=== PATIENT | female | born 1975 | race Caucasian/White ===

== ENCOUNTER 2017-11-15 15:49 | Emergency (ER) | payer SELFPAY ==
[2017-11-15 15:53] VITALS: BMI 25.4
--- NOTE | 2017-11-15 17:00 | C.PDOC ---
History Of Present Illness 41 y/o female presents to the ED complaining of sore throat and fever for the past 3 days. She denies any sick contacts at home or recent travel. She denies any nasal congestion, ear pain, or chills. Time Seen by Provider: 11/15/17 16:14 Chief Complaint (Nursing): ENT Problem History Per: Patient History/Exam Limitations: None Onset/Duration Of Symptoms: Days Current Symptoms Are (Timing): Still Present Past Medical History Reviewed: Historical Data, Nursing Documentation, Vital Signs Vital Signs: Last Vital Signs Temp 99.2 F 11/15/17 17:15 Pulse 90 11/15/17 17:15 Resp 18 11/15/17 17:15 BP 105/69 11/15/17 17:15 Pulse Ox 97 11/15/17 17:43 - Medical History PMH: No Chronic Diseases Surgical History: No Surg Hx Family History: States: No Known Family Hx - Social History Hx Alcohol Use: No Hx Substance Use: No - Immunization History Hx Tetanus Toxoid Vaccination: No Hx Influenza Vaccination: No Hx Pneumococcal Vaccination: No Review Of Systems Except As Marked, All Systems Reviewed And Found Negative. Constitutional: Positive for: Fever. Negative for: Chills ENT: Positive for: Throat Pain. Negative for: Ear Pain, Nose Congestion Physical Exam - Physical Exam Appears: Non-toxic, No Acute Distress Skin: Normal Color, Warm, Dry Head: Atraumatic, Normacephalic Eye(s): bilateral: Normal Inspection, PERRL, EOMI Oral Mucosa: Moist Throat: Erythema, Exudate, No Drooling, Other (pharyngeal and tonsillar erythema and swelling, uvula midline ) Neck: Supple Lymphatic: Adenopathy (Anterior cervical lymphadenopathy) Chest: Symmetrical Cardiovascular: Rhythm Regular Respiratory: Normal Breath Sounds, No Rales, No Rhonchi, No Wheezing Extremity: Normal ROM, No Tenderness Neurological/Psych: Oriented x3, Normal Speech, Normal Cognition Gait: Steady ED Course And Treatment O2 Sat by Pulse Oximetry: 97 (RA) Pulse Ox Interpretation: Normal Progress Note: Orders: amoxicilin 500mg PO. tylenol 650mg PO Disposition - Disposition Referrals: [facility] [Outside] Disposition: HOME/ ROUTINE Disposition Time: 16:58 Condition: GOOD Additional Instructions: Follow up with PMD within 1-2 days. Return to ED if feel worse. Prescriptions: Amoxicillin [Amoxil 500 mg Cap] 500 mg PO Q8 #30 cap Ibuprofen [Motrin Tab] 400 mg PO Q8 #30 tab Instructions: Strep Throat (DC) Forms: [employer] (Belgian) - Clinical Impression Clinical Impression: Pharyngitis - PA / OCCUPATIONAL HEALTH COORDINATOR / Resident Statement MD/DO has reviewed & agrees with the documentation as recorded. - Scribe Statement The provider has reviewed the documentation as recorded by the Scribe Mariaa Chau All medical record entries made by the Hermesibleonel were at my direction and personally dictated by me. I have reviewed the chart and agree that the record accurately reflects my personal performance of the history, physical exam, medical decision making, and the department course for this patient. I have also personally directed, reviewed, and agree with the discharge instructions and disposition.
[2017-11-15 17:17] VITALS: BP 105/69; PULSE 90; RESP 18; TEMP 99.2
[2017-11-15 17:38] VITALS: O2SAT 97
== END 2017-11-15 17:17 | disposition home or self-care (01) ==
LOC: C.ER 15:49
DX: J02.9 Acute pharyngitis, unspecified (principal)